=== PATIENT | male | born 1995 | race Caucasian/White ===

== ENCOUNTER 2021-05-16 10:45 | Emergency (ER) | payer OTHER ==
[~2021-05-16] VITALS: Ht 175.3 cm; Wt 117.0 kg
[~2021-05-16 10:45] MED LIST: ACETAMINOPHEN-1 EAC1 PO; MEDROLDOSEPACK PO; MOBIC7.5 MG PO; NOHOMEMEDICATIONS; PEPCID20 MG PO
[2021-05-16] MEDS ORDERED: PROMETHAZI6.25 MG/5 PO (11:49)
[2021-05-16] MEDS ORDERED: TESSALON PERLE100 MG PO (11:49)
[2021-05-16] MEDS ORDERED: APAP W/CODEINE1 TA2 PO (11:49)
[2021-05-16 12:10] LABS: INFLUENZA A ANTIGEN Negative (Negative); INFLUENZA B ANTIGEN Negative (Negative)
[2021-05-16 12:16] VITALS: BP 144/100
== END 2021-05-16 12:17 | disposition home or self-care (01) ==
LOC: M.ERS 10:45
PROVIDERS: Physician Assistant
DX: J06.9 Acute upper respiratory infection, unspecified (principal); Z98.890 Other specified postprocedural states

== ENCOUNTER 2021-05-22 17:10 | Observation (INO) | payer OTHER ==
[~2021-05-22] VITALS: Ht 175.3 cm; Wt 113.4 kg
[~2021-05-22 17:10] MED LIST changes: +APAP W/CODEINE1 TA2 PO; +PROMETHAZI6.25 MG/5 PO; +TESSALON PERLE100 MG PO
[2021-05-22 17:15] VITALS: BP 136/83
[2021-05-22] MEDS ORDERED: DEXAMETHASONE 44 M1 PO (18:03)
[2021-05-22] MEDS ORDERED: VENTOLIN HFA 1818 GM INH (18:03)
[2021-05-22] MEDS ORDERED: PULMICORT FLEX90 MCG INH (18:03)
[2021-05-22 18:47] LABS: ABSOLUTE LYMPHOCYTES 1.6 thou/uL (0.8-5.3); ABSOLUTE MONOCYTES 0.4 thou/uL (0.0-1.2); ABSOLUTE NEUTROPHILS 2.5 thou/uL (1.6-8.1); BASOPHILS 0.5 %; HEMOGLOBIN 14.3 gm/dL (14.0-18.0); LYMPHOCYTES 35.6 %; MCH 29.8 pg (26.0-34.0); MCHC 33.3 g/dL (28.0-37.0); MCV 89.5 fL (80.0-100.0); MONOCYTES 9.1 %; MPV 8.9 fl. (7.2-11.1); NUCLEATED RBCS 0 /100WBC; PLATELET COUNT* 117 thou/uL (150-400); POLYS 54.8 %; RBC 4.81 mil/uL (4.50-6.00); RDW-CV 13.1 % (10.5-14.5); WBC 4.5 thou/uL (4.0-11.0)
[2021-05-22 18:59] LABS: CALCIUM 7.8 mg/dL (8.5-10.1); CREATININE 1.1 mg/dL (0.6-1.3); POTASSIUM 3.5 mmol/L (3.5-5.1)
[2021-05-22 19:09] LABS: ALBUMIN 3.4 g/dL (3.4-5.0); TOTAL BILIRUBIN 0.3 mg/dL (<0.1-1.0); TOTAL PROTEIN 7.5 g/dL (6.4-8.2)
[2021-05-22 21:46] VITALS: BP 140/70
[2021-05-23 02:30] VITALS: BP 107/66
[2021-05-23 06:30] VITALS: BP 131/73
[2021-05-23 07:11] LABS: HEMATOCRIT 44.2 % (42.0-52.0); HEMOGLOBIN 14.6 gm/dL (14.0-18.0); MCH 29.4 pg (26.0-34.0); MCHC 32.9 g/dL (28.0-37.0); MCV 89.3 fL (80.0-100.0); RBC 4.95 mil/uL (4.50-6.00); WBC 2.8 thou/uL (4.0-11.0)
[2021-05-23 07:20] LABS: CALCIUM 8.3 mg/dL (8.5-10.1)
[2021-05-23] MEDS ORDERED: DEXAMETHASONE 44 M1 PO (08:38)
[2021-05-23] MEDS ORDERED: TESSALON PERLE100 MG PO (08:38)
[2021-05-23] MEDS ORDERED: GUAIFENESIN-CO118 ML PO (08:38)
[2021-05-23 10:30] VITALS: BP 126/80
--- NOTE | 2021-05-23 10:55 | EKG ---
[place] [address] ELECTROCARDIOGRAM REPORT Name: HERMANN HAGER Room: [address]R.#: [id number] Admission: 05/22/21 Attend Phys: Adolph Pinto, Discharge: Date of : 89 Date of Service: 05/22/21 1825 Report #: [id number] THIS REPORT FOR: //name// [facility] ED Test Date: 2021-05-22 Test Time: 18:25:36 Pat Name: HERMANN HAGER Department: Room: [facility] Gender: M [employer] Supervisor: MEENA : 1995 Requested By: Wil Myers Order Number: [id number] MD: Guicho Egan Measurements Intervals [place] Rate: 83 P: 37 CA: 157 QRS: 80 QRSD: 87 T: 6 QT: 357 QTc: 420 Interpretive Statements Sinus rhythm No previous ECG available for comparison Electronically Signed On 05-23-2021 10:55:20 RCP by Guicho Egan [email or web address] <ELECTRONICALLY SIGNED> By: Guicho Egan MD, [facility] 05/23/21 1055 182 24 Guicho Egan MD, [facility] /EPI
[2021-05-23 12:00] VITALS: BP 126/80
[2021-05-23 12:15] VITALS: BP 126/80
[2021-05-23 12:18] VITALS: BP 126/80
== END 2021-05-23 12:15 | disposition home or self-care (01) ==
LOC: M.ERS 17:10 → M.TBA-ER 18:16
PROVIDERS: Family Medicine; ADMIT Internal Medicine; ATTEND Internal Medicine
DX: J12.9 Viral pneumonia, unspecified (principal); J96.01 Acute respiratory failure with hypoxia; R04.0 Epistaxis; Z20.822 Contact with and (suspected) exposure to COVID-19; R53.83 Other fatigue; E66.9 Obesity, unspecified; Z68.36 Body mass index [BMI] 36.0-36.9, adult; Z98.890 Other specified postprocedural states; Z79.899 Other long term (current) drug therapy